=== PATIENT | female | born 1985 | race Caucasian/White ===

== ENCOUNTER → 2016-08-17 | Outpatient (CLI) | payer OTHER ==
[2006-02-23 09:22] VITALS: TEMP 97.6
[~2016-08-17] MED LIST: COLACE 100100 MG/CAP PO; JENCYCLA0.35 MG PO; MOTRIN 600600 MG/TAB PO; PRENATAL1 TA1 PO; PRENATAL1 TA7 PO; ZOFRAN 4MG T4 MG/TAB PO
== END ==
LOC: COL.RAD 11:03
DX: N83.202 Unspecified ovarian cyst, left side (principal); N85.4 Malposition of uterus

== ENCOUNTER → 2016-11-23 | Outpatient (CLI) | payer OTHER ==
[2006-02-23 09:22] VITALS: TEMP 97.6
== END ==
LOC: COL.RAD 10:23
DX: N83.202 Unspecified ovarian cyst, left side (principal); N93.9 Abnormal uterine and vaginal bleeding, unspecified; N85.4 Malposition of uterus

== ENCOUNTER → 2017-05-27 | Outpatient (CLI) | payer OTHER ==
[2006-02-23 09:22] VITALS: TEMP 97.6
== END ==
LOC: COL.RAD 09:45
DX: M25.512 Pain in left shoulder (principal); G89.29 Other chronic pain